=== PATIENT | female | born 1950 | race African-American/Black ===

== ENCOUNTER 2017-03-22 11:46 | Inpatient (IN) | payer MEDICARE, MEDICAID ==
[~2017-03-22] VITALS: Ht 170.2 cm; Wt 71.7 kg
[~2017-03-22 11:46] MED LIST: AMLO-511 PO; BENZ0.5T32 PO; HALO10TA15 PO; OLAN15TA5 PO
[2017-03-22] MEDS ORDERED: LORazepam 2 MG/ML VIAL IM ONE (17:00)
[2017-03-22] MEDS ORDERED: HALOPERIDOL LACTATE 5 MG/ML VIAL IM ONE (17:00)
[2017-03-22] MEDS ORDERED: LORazepam 2 MG TABLET PO PRN (17:45)
[2017-03-22] MEDS ORDERED: ZOLPIDEM TARTRATE 10 MG TABLET PO PRN (17:45)
[2017-03-22] MEDS ORDERED: HALOPERIDOL 5 MG TABLET PO PRN (17:45)
[2017-03-22] MEDS: HALOPERIDOL 10 MG TABLET PO SCH (20:09)
[2017-03-23 05:31] LABS: BASOPHILS % (AUTO) 0.3 % (0.0-2.0); EOSINOPHILS % (AUTO) 0.3 % (1.0-6.0); HEMATOCRIT 40.3 % (36-46); HEMOGLOBIN 13.9 g/dL (12.0-16.0); LYMPHOCYTES # (AUTO) 0.8 K/uL (1.0-4.8); LYMPHOCYTES % (AUTO) 29.5 % (22.0-44.0); MEAN CORPUSCULAR HEMOGLOBIN 32.5 pg (26.0-34.0); MEAN CORPUSCULAR HGB CONC 34.4 G/dL (31.0-37.0); MEAN CORPUSCULAR VOLUME 94 fL (80-100); MONOCYTES # (AUTO) 0.2 K/uL (0.1-1.0); MONOCYTES % (AUTO) 7.5 % (2.0-9.0); NEUTROPHILS # (AUTO) 1.7 K/uL (1.8-7.7); NEUTROPHILS % (AUTO) 62.4 % (40.0-70.0); PLATELET COUNT (AUTO) 257 K/uL (150-450); RED BLOOD CELL COUNT(AUTO) 4.26 MIL/uL (4.00-5.20); RED CELL DISTRIBUTION WIDTH 13.2 % (11.5-14.5); WHITE BLOOD COUNT (AUTO) 2.8 K/uL (4.5-11.0)
[2017-03-23 05:33] LABS: ALANINE AMINOTRANSFERASE 59 U/L (12-78); ALBUMIN 3.7 g/dL (3.4-5.0); ANION GAP 4 mmol/L (8-16); ASPARTATE AMINOTRANSFERASE 43 U/L (15-37); BILIRUBIN,TOTAL 0.5 mg/dL (0.1-1.0); CALCIUM, TOTAL 9.1 mg/dL (8.8-10.5); CARBON DIOXIDE 32 mmol/L (22-29); CHLORIDE 106 mmol/L (98-107); CHOL/HDL RATIO 2.4 (3.9-5.7); GLOMERULAR FILTR. RATE CALC > 60 mL/min (>60); POTASSIUM 3.9 mmol/L (3.5-5.1); SODIUM SERUM 142 mmol/L (136-145); TOTAL PROTEIN, SERUM 7.6 g/dL (6.4-8.2); UREA NITROGEN, BLOOD 7 mg/dL (7-18)
[2017-03-23 20:42] VITALS: BP 131/65
[2017-03-23] MEDS: HALOPERIDOL 10 MG TABLET PO SCH (20:45)
[2017-03-23] MEDS ORDERED: PNEUMOCOCCAL VACCINE POLYVALENT 0.5 ML VIAL [PPSV23] IM ONE (21:15)
[2017-03-23] MEDS ORDERED: -PHARMACY VACCINE NOTE- MISC ONE ×2 (21:15)
[2017-03-24 08:19] VITALS: BP 133/68
[2017-03-24 16:28] VITALS: BP 137/76
[2017-03-24] MEDS: BENZTROPINE MESYLATE 1 MG TABLET PO SCH (17:00)
[2017-03-24] MEDS: OLANZapine 5 MG RAPDIS TABLET PO SCH (20:25)
[2017-03-24] MEDS: HALOPERIDOL 10 MG TABLET PO SCH (20:25)
[2017-03-25 07:29] VITALS: BP 135/72
[2017-03-25] MEDS: HYDROCORTISONE 1% 30 GM OINTMENT TP SCH ×2 (09:00→16:02)
[2017-03-25] MEDS: OLANZapine 5 MG RAPDIS TABLET PO SCH ×2 (09:00→21:00)
[2017-03-25] MEDS: BENZTROPINE MESYLATE 1 MG TABLET PO SCH ×2 (09:00→17:00)
[2017-03-25 09:08] VITALS: BP 155/86
[2017-03-25 16:14] VITALS: BP 136/80
[2017-03-25] MEDS: HALOPERIDOL 10 MG TABLET PO SCH (21:00)
[2017-03-26 08:09] VITALS: BP 137/82
[2017-03-26] MEDS: OLANZapine 5 MG RAPDIS TABLET PO SCH ×2 (09:00→20:53)
[2017-03-26] MEDS: HYDROCORTISONE 1% 30 GM OINTMENT TP SCH ×2 (09:00→17:07)
[2017-03-26] MEDS: BENZTROPINE MESYLATE 1 MG TABLET PO SCH ×2 (09:00→17:00)
[2017-03-26 16:10] VITALS: BP 135/78
[2017-03-26] MEDS: HALOPERIDOL 10 MG TABLET PO SCH (20:52)
[2017-03-27 07:04] VITALS: BP 138/72
[2017-03-27 08:48] VITALS: BP 151/70
[2017-03-27] MEDS: HYDROCORTISONE 1% 30 GM OINTMENT TP SCH ×2 (09:00→17:00)
[2017-03-27] MEDS: BENZTROPINE MESYLATE 1 MG TABLET PO SCH ×2 (09:00→17:00)
[2017-03-27] MEDS: OLANZapine 5 MG RAPDIS TABLET PO SCH ×2 (09:00→20:21)
[2017-03-27 16:15] VITALS: BP 112/62
[2017-03-27] MEDS: HALOPERIDOL 10 MG TABLET PO SCH (20:21)
[2017-03-28 07:21] VITALS: BP 120/72
[2017-03-28 08:12] VITALS: BP 137/64
[2017-03-28] MEDS: HYDROCORTISONE 1% 30 GM OINTMENT TP SCH ×2 (08:33→17:22)
[2017-03-28] MEDS: OLANZapine 5 MG RAPDIS TABLET PO SCH ×2 (08:35→21:00)
[2017-03-28] MEDS: BENZTROPINE MESYLATE 1 MG TABLET PO SCH ×2 (08:36→17:00)
[2017-03-28 16:20] VITALS: BP 134/70
[2017-03-28] MEDS: HALOPERIDOL 10 MG TABLET PO SCH (21:00)
[2017-03-29] MEDS: BENZTROPINE MESYLATE 1 MG TABLET PO SCH ×2 (08:11→16:57)
[2017-03-29] MEDS: OLANZapine 5 MG RAPDIS TABLET PO SCH ×2 (08:11→21:00)
[2017-03-29] MEDS: HYDROCORTISONE 1% 30 GM OINTMENT TP SCH ×2 (08:11→16:59)
[2017-03-29 08:21] VITALS: BP 129/81
[2017-03-29 16:09] VITALS: BP 142/82
[2017-03-29] MEDS: HALOPERIDOL 10 MG TABLET PO SCH (21:00)
[2017-03-30 06:00] VITALS: BP 135/76
[2017-03-30 08:05] VITALS: BP 123/75
[2017-03-30] MEDS: BENZTROPINE MESYLATE 1 MG TABLET PO SCH ×2 (08:26→16:40)
[2017-03-30] MEDS: OLANZapine 5 MG RAPDIS TABLET PO SCH ×2 (08:27→21:00)
[2017-03-30] MEDS: HYDROCORTISONE 1% 30 GM OINTMENT TP SCH ×2 (08:27→16:40)
[2017-03-30 16:07] VITALS: BP 135/71
[2017-03-30] MEDS: HALOPERIDOL 10 MG TABLET PO SCH (21:00)
[2017-03-31 03:54] VITALS: BP 138/80
[2017-03-31 08:20] VITALS: BP 138/78
[2017-03-31] MEDS: BENZTROPINE MESYLATE 1 MG TABLET PO SCH ×2 (08:41→16:48)
[2017-03-31] MEDS: OLANZapine 5 MG RAPDIS TABLET PO SCH ×2 (08:41→21:00)
[2017-03-31] MEDS: HYDROCORTISONE 1% 30 GM OINTMENT TP SCH ×2 (08:41→16:48)
[2017-03-31] MEDS: HALOPERIDOL 10 MG TABLET PO SCH (21:00)
[2017-04-01 06:16] VITALS: BP 135/70
[2017-04-01 08:09] VITALS: BP 165/66
[2017-04-01] MEDS: OLANZapine 5 MG RAPDIS TABLET PO SCH ×2 (08:42→21:00)
[2017-04-01] MEDS: BENZTROPINE MESYLATE 1 MG TABLET PO SCH ×2 (08:42→16:18)
[2017-04-01] MEDS: HYDROCORTISONE 1% 30 GM OINTMENT TP SCH ×2 (08:43→16:18)
[2017-04-01 09:30] VITALS: BP 140/80
[2017-04-01 16:08] VITALS: BP 140/78
[2017-04-01] MEDS: HALOPERIDOL 10 MG TABLET PO SCH (20:06)
[2017-04-02] MEDS: HYDROCORTISONE 1% 30 GM OINTMENT TP SCH ×2 (08:37→16:36)
[2017-04-02] MEDS: OLANZapine 5 MG RAPDIS TABLET PO SCH ×2 (08:38→20:43)
[2017-04-02] MEDS: BENZTROPINE MESYLATE 1 MG TABLET PO SCH ×2 (08:38→16:36)
[2017-04-02 16:07] VITALS: BP 127/83
[2017-04-02 16:59] VITALS: BP 127/83
[2017-04-02] MEDS: HALOPERIDOL 10 MG TABLET PO SCH (20:43)
[2017-04-02] MEDS: HALOPERIDOL LACTATE 5 MG/ML VIAL IM PRN (20:44)
[2017-04-03 06:57] VITALS: BP 135/82
[2017-04-03 08:06] VITALS: BP 125/69
[2017-04-03] MEDS: BENZTROPINE MESYLATE 1 MG TABLET PO SCH ×2 (08:45→17:00)
[2017-04-03] MEDS: OLANZapine 5 MG RAPDIS TABLET PO SCH (08:46)
[2017-04-03] MEDS: HYDROCORTISONE 1% 30 GM OINTMENT TP SCH ×2 (08:47→17:00)
[2017-04-03] MEDS: HALOPERIDOL LACTATE 5 MG/ML VIAL IM PRN ×2 (08:55→17:58)
[2017-04-03] MEDS: HALOPERIDOL 10 MG TABLET PO SCH (17:00)
[2017-04-04] MEDS: HYDROCORTISONE 1% 30 GM OINTMENT TP SCH ×2 (09:00→16:19)
[2017-04-04] MEDS: HALOPERIDOL 10 MG TABLET PO SCH ×2 (09:00→16:19)
[2017-04-04] MEDS: BENZTROPINE MESYLATE 1 MG TABLET PO SCH ×2 (09:00→16:18)
[2017-04-04] MEDS: HALOPERIDOL LACTATE 5 MG/ML VIAL IM PRN ×2 (10:43→17:01)
[2017-04-05] MEDS: BENZTROPINE MESYLATE 1 MG TABLET PO SCH ×2 (09:00→16:16)
[2017-04-05] MEDS: HALOPERIDOL 10 MG TABLET PO SCH ×2 (09:00→16:16)
[2017-04-05] MEDS: HALOPERIDOL LACTATE 5 MG/ML VIAL IM PRN ×2 (09:10→16:16)
[2017-04-05] MEDS: HYDROCORTISONE 1% 30 GM OINTMENT TP SCH ×2 (09:11→16:16)
[2017-04-05 16:08] VITALS: BP 135/63
[2017-04-06 03:44] VITALS: BP 127/66
[2017-04-06 08:14] VITALS: BP 118/69
[2017-04-06] MEDS: BENZTROPINE MESYLATE 1 MG TABLET PO SCH ×2 (09:00→16:22)
[2017-04-06] MEDS: HYDROCORTISONE 1% 30 GM OINTMENT TP SCH ×2 (09:00→16:22)
[2017-04-06] MEDS: HALOPERIDOL 10 MG TABLET PO SCH ×2 (09:00→16:22)
[2017-04-06] MEDS: HALOPERIDOL LACTATE 5 MG/ML VIAL IM PRN ×2 (10:37→16:25)
[2017-04-06 16:26] VITALS: BP 137/86
[2017-04-07 02:37] VITALS: BP 133/67
[2017-04-07 08:12] VITALS: BP 137/67
[2017-04-07] MEDS: HALOPERIDOL 10 MG TABLET PO SCH ×2 (09:00→17:00)
[2017-04-07] MEDS: BENZTROPINE MESYLATE 1 MG TABLET PO SCH ×2 (09:00→17:00)
[2017-04-07] MEDS: HYDROCORTISONE 1% 30 GM OINTMENT TP SCH ×2 (09:08→17:13)
[2017-04-07 16:14] VITALS: BP 138/67
[2017-04-07] MEDS: HALOPERIDOL LACTATE 5 MG/ML VIAL IM PRN (17:26)
[2017-04-08 08:28] VITALS: BP 122/66
[2017-04-08] MEDS: BENZTROPINE MESYLATE 1 MG TABLET PO SCH ×2 (09:00→17:00)
[2017-04-08] MEDS: HALOPERIDOL 10 MG TABLET PO SCH ×2 (09:00→17:00)
[2017-04-08] MEDS: HYDROCORTISONE 1% 30 GM OINTMENT TP SCH ×2 (09:03→17:00)
[2017-04-08] MEDS: HALOPERIDOL LACTATE 5 MG/ML VIAL IM PRN ×2 (09:45→17:43)
[2017-04-08 16:11] VITALS: BP 135/72
[2017-04-09 01:19] VITALS: BP 133/71
[2017-04-09 08:29] VITALS: BP 128/81
[2017-04-09] MEDS: HALOPERIDOL 10 MG TABLET PO SCH ×2 (09:00→17:00)
[2017-04-09] MEDS: BENZTROPINE MESYLATE 1 MG TABLET PO SCH ×2 (09:00→17:00)
[2017-04-09] MEDS: HYDROCORTISONE 1% 30 GM OINTMENT TP SCH ×2 (09:41→17:23)
[2017-04-09 16:15] VITALS: BP 136/69
[2017-04-10 06:04] VITALS: BP 133/63
[2017-04-10 08:17] VITALS: BP 123/64
[2017-04-10] MEDS: HALOPERIDOL 10 MG TABLET PO SCH ×2 (08:27→17:00)
[2017-04-10] MEDS: BENZTROPINE MESYLATE 1 MG TABLET PO SCH ×2 (08:27→17:00)
[2017-04-10] MEDS: HYDROCORTISONE 1% 30 GM OINTMENT TP SCH ×2 (08:47→17:01)
[2017-04-11 03:09] VITALS: BP 133/81
[2017-04-11] MEDS: HALOPERIDOL 10 MG TABLET PO SCH ×2 (08:22→16:15)
[2017-04-11] MEDS: BENZTROPINE MESYLATE 1 MG TABLET PO SCH ×2 (08:22→16:15)
[2017-04-11] MEDS: HYDROCORTISONE 1% 30 GM OINTMENT TP SCH ×2 (08:30→16:15)
[2017-04-11 16:19] VITALS: BP 136/77
[2017-04-11] MEDS: HALOPERIDOL LACTATE 5 MG/ML VIAL IM PRN (16:37)
[2017-04-12 05:52] VITALS: BP 130/72
[2017-04-12] MEDS: BENZTROPINE MESYLATE 1 MG TABLET PO SCH ×2 (08:17→16:08)
[2017-04-12] MEDS: HYDROCORTISONE 1% 30 GM OINTMENT TP SCH ×2 (08:17→16:08)
[2017-04-12] MEDS: HALOPERIDOL 10 MG TABLET PO SCH ×2 (08:17→16:08)
[2017-04-12 08:28] VITALS: BP 116/73
[2017-04-12] MEDS: HALOPERIDOL LACTATE 5 MG/ML VIAL IM PRN ×2 (08:32→16:23)
[2017-04-13 01:35] VITALS: BP 117/71
[2017-04-13 08:19] VITALS: BP 101/82
[2017-04-13] MEDS: BENZTROPINE MESYLATE 1 MG TABLET PO SCH ×3 (09:00→17:00)
[2017-04-13] MEDS: HALOPERIDOL 10 MG TABLET PO SCH ×3 (09:00→17:00)
[2017-04-13] MEDS: HYDROCORTISONE 1% 30 GM OINTMENT TP SCH ×2 (09:04→17:02)
[2017-04-13] MEDS: HALOPERIDOL LACTATE 5 MG/ML VIAL IM PRN ×2 (10:06→17:41)
[2017-04-13 16:11] VITALS: BP 142/92
[2017-04-14 03:15] VITALS: BP 127/77
[2017-04-14 08:23] VITALS: BP 152/109
[2017-04-14] MEDS: HALOPERIDOL 10 MG TABLET PO SCH ×2 (08:24→16:25)
[2017-04-14] MEDS: BENZTROPINE MESYLATE 1 MG TABLET PO SCH ×2 (08:24→16:25)
[2017-04-14] MEDS: HYDROCORTISONE 1% 30 GM OINTMENT TP SCH ×2 (08:25→16:25)
[2017-04-14] MEDS: HALOPERIDOL LACTATE 5 MG/ML VIAL IM PRN ×2 (08:43→17:29)
[2017-04-14 16:03] VITALS: BP 149/85
[2017-04-15 05:16] VITALS: BP 106/70
[2017-04-15 08:11] VITALS: BP 120/77
[2017-04-15] MEDS: BENZTROPINE MESYLATE 1 MG TABLET PO SCH ×2 (09:00→16:37)
[2017-04-15] MEDS: HALOPERIDOL 10 MG TABLET PO SCH ×2 (09:00→16:37)
[2017-04-15] MEDS: HYDROCORTISONE 1% 30 GM OINTMENT TP SCH ×2 (09:23→16:36)
[2017-04-15] MEDS: HALOPERIDOL LACTATE 5 MG/ML VIAL IM PRN ×2 (09:52→17:32)
[2017-04-15 16:13] VITALS: BP 132/66
[2017-04-16 08:00] VITALS: BP 133/78
[2017-04-16] MEDS: HALOPERIDOL LACTATE 5 MG/ML VIAL IM PRN ×2 (08:50→17:00)
[2017-04-16] MEDS: BENZTROPINE MESYLATE 1 MG TABLET PO SCH ×2 (09:00→16:12)
[2017-04-16] MEDS: HALOPERIDOL 10 MG TABLET PO SCH ×2 (09:00→16:12)
[2017-04-16] MEDS: HYDROCORTISONE 1% 30 GM OINTMENT TP SCH ×2 (10:07→16:12)
[2017-04-16 16:04] VITALS: BP 133/60
[2017-04-17 06:54] VITALS: BP 128/69
[2017-04-17 08:31] VITALS: BP 150/76
[2017-04-17] MEDS: BENZTROPINE MESYLATE 1 MG TABLET PO SCH ×2 (09:00→16:41)
[2017-04-17] MEDS: HALOPERIDOL 10 MG TABLET PO SCH ×2 (09:00→16:42)
[2017-04-17] MEDS: HYDROCORTISONE 1% 30 GM OINTMENT TP SCH ×2 (09:30→16:42)
[2017-04-17] MEDS: HALOPERIDOL LACTATE 5 MG/ML VIAL IM PRN ×2 (09:37→17:15)
[2017-04-18 08:37] VITALS: BP 132/84
[2017-04-18] MEDS: HYDROCORTISONE 1% 30 GM OINTMENT TP SCH ×2 (08:59→17:00)
[2017-04-18] MEDS: BENZTROPINE MESYLATE 1 MG TABLET PO SCH ×2 (09:00→17:00)
[2017-04-18] MEDS: HALOPERIDOL LACTATE 5 MG/ML VIAL IM PRN ×2 (09:00→17:30)
[2017-04-18] MEDS: HALOPERIDOL 10 MG TABLET PO SCH ×2 (09:00→17:00)
[2017-04-18 18:07] VITALS: BP 127/79
[2017-04-19 08:18] VITALS: BP 140/78
[2017-04-19] MEDS: HYDROCORTISONE 1% 30 GM OINTMENT TP SCH ×2 (08:40→17:10)
[2017-04-19] MEDS: BENZTROPINE MESYLATE 1 MG TABLET PO SCH ×2 (08:40→17:00)
[2017-04-19] MEDS: HALOPERIDOL 10 MG TABLET PO SCH ×2 (08:40→17:00)
[2017-04-19] MEDS: HALOPERIDOL LACTATE 5 MG/ML VIAL IM PRN ×2 (09:17→17:26)
[2017-04-20 01:38] VITALS: BP 133/68
[2017-04-20 08:12] VITALS: BP 140/80
[2017-04-20] MEDS: BENZTROPINE MESYLATE 1 MG TABLET PO SCH ×2 (09:00→17:00)
[2017-04-20] MEDS: HALOPERIDOL 10 MG TABLET PO SCH ×2 (09:00→17:00)
[2017-04-20] MEDS: HYDROCORTISONE 1% 30 GM OINTMENT TP SCH ×2 (09:34→17:10)
[2017-04-20] MEDS: HALOPERIDOL LACTATE 5 MG/ML VIAL IM PRN ×2 (10:29→17:26)
[2017-04-20 15:57] VITALS: BP 138/82
[2017-04-21 08:07] VITALS: BP 142/85
[2017-04-21] MEDS: BENZTROPINE MESYLATE 1 MG TABLET PO SCH ×2 (09:00→16:17)
[2017-04-21] MEDS: HALOPERIDOL 10 MG TABLET PO SCH ×2 (09:00→16:17)
[2017-04-21] MEDS: HYDROCORTISONE 1% 30 GM OINTMENT TP SCH ×2 (09:04→16:20)
[2017-04-21] MEDS: HALOPERIDOL LACTATE 5 MG/ML VIAL IM PRN ×2 (09:05→16:19)
[2017-04-21 16:05] VITALS: BP 150/90
[2017-04-22 07:12] VITALS: BP 140/85
[2017-04-22 08:19] VITALS: BP 157/90
[2017-04-22] MEDS: HALOPERIDOL 10 MG TABLET PO SCH ×2 (09:00→17:00)
[2017-04-22] MEDS: BENZTROPINE MESYLATE 1 MG TABLET PO SCH ×2 (09:00→17:00)
[2017-04-22] MEDS: HYDROCORTISONE 1% 30 GM OINTMENT TP SCH ×2 (09:55→17:00)
[2017-04-22] MEDS: HALOPERIDOL LACTATE 5 MG/ML VIAL IM PRN ×2 (09:55→17:50)
[2017-04-22 16:31] VITALS: BP 134/82
[2017-04-23] MEDS: HYDROCORTISONE 1% 30 GM OINTMENT TP SCH ×2 (08:24→16:57)
[2017-04-23] MEDS: HALOPERIDOL 10 MG TABLET PO SCH ×2 (08:24→16:57)
[2017-04-23] MEDS: BENZTROPINE MESYLATE 1 MG TABLET PO SCH ×2 (08:24→16:57)
[2017-04-23] MEDS: HALOPERIDOL LACTATE 5 MG/ML VIAL IM PRN ×2 (08:25→16:58)
[2017-04-23 08:35] VITALS: BP 160/92
[2017-04-23 08:50] VITALS: BP 124/63
[2017-04-23 16:08] VITALS: BP 124/68
[2017-04-24 06:27] VITALS: BP 118/67
[2017-04-24] MEDS: BENZTROPINE MESYLATE 1 MG TABLET PO SCH ×2 (08:41→17:00)
[2017-04-24] MEDS: HALOPERIDOL 10 MG TABLET PO SCH ×2 (08:41→17:00)
[2017-04-24] MEDS: HYDROCORTISONE 1% 30 GM OINTMENT TP SCH ×2 (08:41→17:13)
[2017-04-24] MEDS: HALOPERIDOL LACTATE 5 MG/ML VIAL IM PRN ×2 (08:42→17:18)
[2017-04-24 08:44] VITALS: BP 133/88
[2017-04-24 16:10] VITALS: BP 128/73
[2017-04-25 06:33] VITALS: BP 122/62
[2017-04-25 08:00] VITALS: BP 145/88
[2017-04-25] MEDS: HALOPERIDOL 10 MG TABLET PO SCH ×2 (09:00→17:00)
[2017-04-25] MEDS: BENZTROPINE MESYLATE 1 MG TABLET PO SCH ×2 (09:00→17:00)
[2017-04-25] MEDS: HALOPERIDOL LACTATE 5 MG/ML VIAL IM PRN ×2 (09:54→17:28)
[2017-04-25] MEDS: HYDROCORTISONE 1% 30 GM OINTMENT TP SCH ×2 (09:54→17:29)
[2017-04-25] MEDS: HALOPERIDOL DECANOATE 100 MG/ML VIAL IM SCH (10:31)
[2017-04-25 16:18] VITALS: BP 120/75
[2017-04-26 05:41] VITALS: BP 135/72
[2017-04-26 08:30] VITALS: BP 134/74
[2017-04-26] MEDS: HALOPERIDOL LACTATE 5 MG/ML VIAL IM PRN ×2 (08:53→17:33)
[2017-04-26] MEDS: BENZTROPINE MESYLATE 1 MG TABLET PO SCH ×2 (09:00→17:00)
[2017-04-26] MEDS: HALOPERIDOL 10 MG TABLET PO SCH ×2 (09:00→17:00)
[2017-04-26] MEDS: HYDROCORTISONE 1% 30 GM OINTMENT TP SCH ×2 (09:26→17:33)
[2017-04-26 16:21] VITALS: BP 138/88
[2017-04-26] MEDS ORDERED: DiphenhydrAMINE HCL 50 MG/ML VIAL IM ONE (21:30)
[2017-04-27 06:30] VITALS: BP 123/68
[2017-04-27] MEDS: BENZTROPINE MESYLATE 1 MG TABLET PO SCH ×2 (08:59→17:00)
[2017-04-27] MEDS: HYDROCORTISONE 1% 30 GM OINTMENT TP SCH ×2 (08:59→17:26)
[2017-04-27] MEDS: HALOPERIDOL 10 MG TABLET PO SCH ×2 (08:59→17:00)
[2017-04-27] MEDS: HALOPERIDOL LACTATE 5 MG/ML VIAL IM PRN ×2 (09:01→17:26)
[2017-04-27 16:39] VITALS: BP 131/86
[2017-04-28 06:57] VITALS: BP 134/81
[2017-04-28] MEDS: BENZTROPINE MESYLATE 1 MG TABLET PO SCH ×2 (08:18→17:00)
[2017-04-28] MEDS: HYDROCORTISONE 1% 30 GM OINTMENT TP SCH ×2 (08:18→17:21)
[2017-04-28] MEDS: HALOPERIDOL 10 MG TABLET PO SCH ×2 (08:19→17:00)
[2017-04-28 08:31] VITALS: BP 136/80
[2017-04-28] MEDS: HALOPERIDOL LACTATE 5 MG/ML VIAL IM PRN ×2 (10:00→17:22)
[2017-04-28 16:25] VITALS: BP 137/73
[2017-04-29 03:45] VITALS: BP 132/71
[2017-04-29 08:23] VITALS: BP 145/91
[2017-04-29] MEDS: HALOPERIDOL 10 MG TABLET PO SCH ×2 (09:00→16:18)
[2017-04-29] MEDS: BENZTROPINE MESYLATE 1 MG TABLET PO SCH ×2 (09:00→16:18)
[2017-04-29] MEDS: HYDROCORTISONE 1% 30 GM OINTMENT TP SCH ×2 (09:46→16:19)
[2017-04-29] MEDS: HALOPERIDOL LACTATE 5 MG/ML VIAL IM PRN ×2 (09:46→16:26)
[2017-04-29 16:30] VITALS: BP 135/84
[2017-04-30 06:53] VITALS: BP 121/67
[2017-04-30] MEDS: HALOPERIDOL 10 MG TABLET PO SCH ×2 (08:33→09:00)
[2017-04-30] MEDS: BENZTROPINE MESYLATE 1 MG TABLET PO SCH ×3 (08:33→16:18)
[2017-04-30] MEDS: HYDROCORTISONE 1% 30 GM OINTMENT TP SCH ×2 (08:33→16:17)
[2017-04-30 09:11] VITALS: BP 143/72
[2017-04-30] MEDS: HALOPERIDOL LACTATE 5 MG/ML VIAL IM PRN (09:42)
[2017-04-30 16:15] VITALS: BP 125/75
[2017-05-01 07:24] VITALS: BP 122/78
[2017-05-01] MEDS: HYDROCORTISONE 1% 30 GM OINTMENT TP SCH ×2 (08:15→16:06)
[2017-05-01] MEDS: BENZTROPINE MESYLATE 1 MG TABLET PO SCH ×2 (08:15→16:06)
[2017-05-01 08:29] VITALS: BP 152/82
[2017-05-01 10:30] VITALS: BP 138/78
[2017-05-01 16:27] VITALS: BP 129/81
[2017-05-02 07:07] VITALS: BP 140/79
[2017-05-02] MEDS: HYDROCORTISONE 1% 30 GM OINTMENT TP SCH ×2 (08:20→16:15)
[2017-05-02] MEDS: BENZTROPINE MESYLATE 1 MG TABLET PO SCH ×3 (08:20→16:15)
[2017-05-02 16:07] VITALS: BP 142/91
[2017-05-03 05:59] VITALS: BP 142/91
[2017-05-03 08:17] VITALS: BP 165/80
[2017-05-03] MEDS ORDERED: TUBERCULIN, PURIFIED PROTEIN DERIVATIVE 5 TU/0.1 ML SYG ID ONE (08:45)
[2017-05-03] MEDS: BENZTROPINE MESYLATE 1 MG TABLET PO SCH ×2 (09:00→17:00)
[2017-05-03] MEDS: HYDROCORTISONE 1% 30 GM OINTMENT TP SCH ×2 (09:34→17:04)
[2017-05-03 16:05] VITALS: BP 139/75
[2017-05-04 00:51] VITALS: BP 137/69
[2017-05-04] MEDS: HYDROCORTISONE 1% 30 GM OINTMENT TP SCH ×2 (08:05→17:10)
[2017-05-04] MEDS: BENZTROPINE MESYLATE 1 MG TABLET PO SCH ×2 (08:05→17:00)
[2017-05-04 08:54] VITALS: BP 134/70
[2017-05-04 16:00] VITALS: BP 153/78
[2017-05-05 07:22] VITALS: BP 140/72
[2017-05-05] MEDS: BENZTROPINE MESYLATE 1 MG TABLET PO SCH ×2 (08:33→17:00)
[2017-05-05] MEDS: HYDROCORTISONE 1% 30 GM OINTMENT TP SCH ×2 (08:33→16:12)
[2017-05-05 09:33] VITALS: BP 139/80
[2017-05-05 16:39] VITALS: BP 140/91
[2017-05-06 08:50] VITALS: BP 145/86
[2017-05-06] MEDS: BENZTROPINE MESYLATE 1 MG TABLET PO SCH ×2 (09:00→16:28)
[2017-05-06] MEDS: HYDROCORTISONE 1% 30 GM OINTMENT TP SCH ×2 (09:06→16:28)
[2017-05-06 16:31] VITALS: BP 144/86
[2017-05-06 18:15] VITALS: BP 138/80
[2017-05-06] MEDS ORDERED: HALO100A IM (21:37)
[2017-05-07 08:23] VITALS: BP 134/74
[2017-05-07] MEDS: HYDROCORTISONE 1% 30 GM OINTMENT TP SCH ×2 (09:00→17:04)
[2017-05-07] MEDS: BENZTROPINE MESYLATE 1 MG TABLET PO SCH ×2 (09:00→17:00)
[2017-05-07 16:34] VITALS: BP 144/76
[2017-05-08 02:00] VITALS: BP 131/74
[2017-05-08 08:22] VITALS: BP 151/74
[2017-05-08] MEDS: HYDROCORTISONE 1% 30 GM OINTMENT TP SCH ×2 (08:42→17:05)
[2017-05-08] MEDS: BENZTROPINE MESYLATE 1 MG TABLET PO SCH ×2 (08:42→17:00)
[2017-05-08 16:31] VITALS: BP 119/71
[2017-05-09 08:53] VITALS: BP 136/67
[2017-05-09] MEDS: BENZTROPINE MESYLATE 1 MG TABLET PO SCH ×2 (09:00→16:31)
[2017-05-09] MEDS: HALOPERIDOL DECANOATE 100 MG/ML VIAL IM SCH (09:06)
[2017-05-09] MEDS: HYDROCORTISONE 1% 30 GM OINTMENT TP SCH ×2 (09:07→16:31)
[2017-05-09 16:22] VITALS: BP 137/84
[2017-05-10] MEDS: HYDROCORTISONE 1% 30 GM OINTMENT TP SCH ×2 (08:23→16:16)
[2017-05-10] MEDS: BENZTROPINE MESYLATE 1 MG TABLET PO SCH ×2 (08:25→16:16)
[2017-05-10 09:12] VITALS: BP 144/74
[2017-05-10 16:10] VITALS: BP 142/80
[2017-05-11 07:20] VITALS: BP 145/76
[2017-05-11] MEDS: HYDROCORTISONE 1% 30 GM OINTMENT TP SCH ×2 (08:35→16:35)
[2017-05-11] MEDS: BENZTROPINE MESYLATE 1 MG TABLET PO SCH ×2 (08:35→17:00)
[2017-05-11 08:36] VITALS: BP 138/78
[2017-05-11 16:17] VITALS: BP 142/72
[2017-05-11] MEDS: MAG HYDROX/AL HYDROX/SIMETH 30 ML SUSP UDCUP PO PRN (18:48)
[2017-05-12 06:44] VITALS: BP 127/74
[2017-05-12] MEDS: BENZTROPINE MESYLATE 1 MG TABLET PO SCH ×2 (08:26→16:12)
[2017-05-12] MEDS: HYDROCORTISONE 1% 30 GM OINTMENT TP SCH ×2 (08:26→16:12)
[2017-05-12 08:28] VITALS: BP 155/92
[2017-05-12 11:30] VITALS: BP 141/88
[2017-05-12 16:10] VITALS: BP 140/77
[2017-05-13 04:26] VITALS: BP 138/78
[2017-05-13 08:11] VITALS: BP 132/73
[2017-05-13] MEDS: BENZTROPINE MESYLATE 1 MG TABLET PO SCH ×2 (08:42→16:20)
[2017-05-13] MEDS: HYDROCORTISONE 1% 30 GM OINTMENT TP SCH ×2 (08:42→16:20)
[2017-05-13 16:13] VITALS: BP 138/77
[2017-05-13] MEDS: MAG HYDROX/AL HYDROX/SIMETH 30 ML SUSP UDCUP PO PRN (22:05)
[2017-05-14 08:30] VITALS: BP 153/85
[2017-05-14] MEDS: BENZTROPINE MESYLATE 1 MG TABLET PO SCH (08:54)
[2017-05-14] MEDS: HYDROCORTISONE 1% 30 GM OINTMENT TP SCH (08:54)
== END 2017-05-14 12:30 | disposition home or self-care (01) | DRG 750 ==
LOC: EMS 11:50 → B3A 03-23 19:16
PROVIDERS: ADMIT Psychiatry & Neurology Child & Adolescent Psychiatry; ATTEND Psychiatry & Neurology Child & Adolescent Psychiatry
DX: F20.0 Paranoid schizophrenia (principal); D72.829 Elevated white blood cell count, unspecified; L30.9 Dermatitis, unspecified; Z88.8 Allergy status to other drugs, medicaments and biological substances; Z28.21 Immunization not carried out because of patient refusal
CPT/HCPCS: 82306; 82652; 87081; 96372; 99285; J1200; J1630; J1631; J2060

== ENCOUNTER 2018-07-15 11:08 | Inpatient (IN) | payer MEDICARE, MEDICAID ==
[~2018-07-15] VITALS: Ht 172.7 cm; Wt 74.6 kg
[~2018-07-15 11:08] MED LIST changes: -AMLO-511 PO; +HALO100A IM; -HALO10TA15 PO; -OLAN15TA5 PO
[2018-07-15] MEDS ORDERED: LORazepam 2 MG/ML VIAL IM ONE (16:15)
[2018-07-15] MEDS ORDERED: HALOPERIDOL LACTATE 5 MG/ML VIAL IM ONE (16:15)
[2018-07-15] MEDS ORDERED: BENZ1TAB10 PO (16:18)
[2018-07-15] MEDS ORDERED: ZOLPIDEM TARTRATE 10 MG TABLET PO PRN (17:45)
[2018-07-15 18:45] LABS: APPEARANCE,URINE CLEAR (CLEAR); BILIRUBIN,URINE NEGATIVE (NEGATIVE); GLUCOSE, URINE (UA) NEGATIVE (NEGATIVE); KETONES,URINE NEGATIVE (NEGATIVE); LEUKOCYTE ESTERASE ,URINE NEGATIVE (NEGATIVE); NITRATE,URINE NEGATIVE (NEGATIVE); OCCULT BLOOD,URINE SMALL (NEGATIVE); PROTEIN,URINE NEGATIVE (NEGATIVE); UROBILINOGEN,URINE 0.2 mg/dL (<=1.0)
[2018-07-15 18:53] LABS: BACTERIA,URINE Rare /HPF (None Seen); SQUAMOUS EPITHELIAL CELL,UR Few /LPF (None Seen); WBC,URINE 0-2 /HPF (0-5)
[2018-07-15 18:54] LABS: AMPHET/METH SCREEN,URINE NEGATIVE (NEGATIVE); BARBITURATE SCREEN, URINE NEGATIVE (NEGATIVE); BENZODIAZEPINES SCREEN,URINE NEGATIVE (NEGATIVE); CANNABINOID SCREEN,URINE NEGATIVE (NEGATIVE); COCAINE SCREEN,URINE NEGATIVE (NEGATIVE); METHADONE SCREEN, URINE NEGATIVE (NEGATIVE); OPIATE SCREEN,URINE NEGATIVE (NEGATIVE); PHENCYCLIDINE SCREEN,URINE NEGATIVE (NEGATIVE)
[2018-07-15 20:11] VITALS: BP 138/85
[2018-07-15] MEDS ORDERED: PNEUMOCOCCAL VACCINE POLYVALENT 0.5 ML VIAL [PPSV23] IM ONE (20:15)
[2018-07-15] MEDS ORDERED: ACETAMINOPHEN 325 MG TABLET PO PRN (21:15)
[2018-07-15] MEDS ORDERED: MAGNESIUM HYDROXIDE SUSPENSION 30 ML UDCUP PO PRN (21:15)
[2018-07-15] MEDS ORDERED: ONDANSETRON HCL 4 MG TABLET PO PRN (21:15)
[2018-07-15] MEDS ORDERED: CloNIDine HCL 0.1 MG TABLET PO PRN (21:15)
[2018-07-15] MEDS ORDERED: ALBUTEROL SULFATE HFA 90 MCG/PUFF 8 GM INHALER IH PRN (21:15)
[2018-07-15] MEDS ORDERED: GuaiFENesin/D-METHORPHAN [SUGAR-FREE] 200-20MG/10 ML SYRUP UDCUP PO PRN (21:15)
[2018-07-15] MEDS ORDERED: IBUPROFEN 400 MG TABLET PO PRN (21:15)
[2018-07-15] MEDS ORDERED: LOPERAMIDE HCL 2 MG CAPSULE PO PRN (21:15)
[2018-07-15] MEDS ORDERED: PETROLATUM,WHITE 28 GM JELLY TP PRN (21:15)
[2018-07-15] MEDS ORDERED: DOCUSATE SODIUM 100 MG CAPSULE PO PRN (21:15)
[2018-07-15] MEDS ORDERED: NICOTINE 14 MG/24 HOUR PATCH TD PRN (21:15)
[2018-07-16 04:55] VITALS: BP 132/82
[2018-07-16 08:13] VITALS: BP 136/81
[2018-07-16] MEDS: HALOPERIDOL 5 MG TABLET PO SCH (17:00)
[2018-07-17] VITALS: BP 132/87
[2018-07-17] MEDS: HALOPERIDOL 5 MG TABLET PO SCH ×2 (09:00→17:00)
[2018-07-18 02:22] VITALS: BP 129/78
[2018-07-18] MEDS: HALOPERIDOL 5 MG TABLET PO SCH ×2 (09:00→17:00)
[2018-07-18] MEDS ORDERED: COLLOIDAL OATMEAL PACKET TP PRN (14:00)
[2018-07-18] MEDS ORDERED: BACITRACIN 28.4 GM OINTMENT TP PRN (14:00)
[2018-07-19 04:46] VITALS: BP 127/80
[2018-07-19] MEDS: HALOPERIDOL 5 MG TABLET PO SCH ×2 (08:20→16:40)
[2018-07-19 08:47] VITALS: BP 127/78
[2018-07-20 00:40] VITALS: BP 129/69
[2018-07-20] MEDS: HALOPERIDOL 5 MG TABLET PO SCH ×2 (08:21→16:36)
[2018-07-20 17:40] VITALS: BP 131/77
[2018-07-21] MEDS: HALOPERIDOL 5 MG TABLET PO SCH ×2 (08:09→16:11)
[2018-07-21 16:42] VITALS: BP 132/69
[2018-07-22 00:58] VITALS: BP 143/89
[2018-07-22] MEDS: HALOPERIDOL 5 MG TABLET PO SCH ×2 (09:00→17:00)
[2018-07-22 09:19] VITALS: BP 143/68
[2018-07-22 20:08] VITALS: BP 138/87
[2018-07-23 04:42] VITALS: BP 136/75
[2018-07-23] MEDS: HALOPERIDOL 5 MG TABLET PO SCH ×2 (09:00→17:00)
[2018-07-23] MEDS: COLLOIDAL OATMEAL/DIMETH 227 GM LOTION TP PRN (14:53)
[2018-07-24] MEDS: HALOPERIDOL 5 MG TABLET PO SCH ×2 (08:33→17:00)
[2018-07-24] MEDS: COLLOIDAL OATMEAL/DIMETH 227 GM LOTION TP PRN (16:13)
[2018-07-24 17:12] VITALS: BP 138/80
[2018-07-25 00:09] VITALS: BP 107/60
[2018-07-25] MEDS: HALOPERIDOL 5 MG TABLET PO SCH ×2 (09:00→17:00)
[2018-07-25 16:14] VITALS: BP 135/77
[2018-07-25] MEDS: HALOPERIDOL LACTATE 5 MG/ML VIAL IM PRN (17:32)
[2018-07-25] MEDS ORDERED: ZOLPIDEM TARTRATE 10 MG TABLET PO PRN (18:15)
[2018-07-26 02:00] VITALS: BP 136/86
[2018-07-26 08:35] VITALS: BP 128/71
[2018-07-26] MEDS: HALOPERIDOL 5 MG TABLET PO SCH ×2 (09:00→17:00)
[2018-07-26] MEDS: HALOPERIDOL LACTATE 5 MG/ML VIAL IM PRN ×2 (09:18→17:58)
[2018-07-27 08:37] VITALS: BP 133/74
[2018-07-27] MEDS: HALOPERIDOL 5 MG TABLET PO SCH ×2 (09:00→17:00)
[2018-07-27] MEDS: HALOPERIDOL LACTATE 5 MG/ML VIAL IM PRN (09:52)
[2018-07-28] MEDS: HALOPERIDOL 5 MG TABLET PO SCH ×2 (09:00→17:00)
[2018-07-28] MEDS: HALOPERIDOL LACTATE 5 MG/ML VIAL IM PRN ×2 (09:46→17:38)
[2018-07-29 01:42] VITALS: BP 146/72
[2018-07-29 08:12] VITALS: BP 138/76
[2018-07-29] MEDS: HALOPERIDOL 5 MG TABLET PO SCH ×2 (09:00→17:00)
[2018-07-29] MEDS: HALOPERIDOL LACTATE 5 MG/ML VIAL IM PRN ×2 (09:52→18:09)
[2018-07-29 16:09] VITALS: BP 141/79
[2018-07-30 00:15] VITALS: BP 132/80
[2018-07-30] MEDS: HALOPERIDOL 5 MG TABLET PO SCH ×2 (08:56→17:00)
[2018-07-30] MEDS: HALOPERIDOL LACTATE 5 MG/ML VIAL IM PRN ×2 (09:36→17:07)
[2018-07-31 08:14] VITALS: BP 111/64
[2018-07-31] MEDS: HALOPERIDOL 5 MG TABLET PO SCH ×2 (09:00→17:00)
[2018-07-31] MEDS: HALOPERIDOL LACTATE 5 MG/ML VIAL IM PRN ×2 (09:12→17:29)
[2018-07-31 16:57] VITALS: BP 127/61
[2018-08-01 08:20] VITALS: BP 137/71
[2018-08-01] MEDS: HALOPERIDOL 5 MG TABLET PO SCH ×2 (09:00→17:00)
[2018-08-01] MEDS: HALOPERIDOL LACTATE 5 MG/ML VIAL IM PRN ×2 (12:27→17:19)
[2018-08-02 00:10] VITALS: BP 126/75
[2018-08-02 08:40] VITALS: BP 137/83
[2018-08-02] MEDS: HALOPERIDOL 5 MG TABLET PO SCH ×2 (09:00→17:00)
[2018-08-02] MEDS ORDERED: HALOPERIDOL DECANOATE 100 MG/ML VIAL IM ONE (10:15)
[2018-08-02] MEDS: HALOPERIDOL LACTATE 5 MG/ML VIAL IM PRN ×2 (11:08→20:15)
[2018-08-03] MEDS: HALOPERIDOL 5 MG TABLET PO SCH ×2 (08:38→17:00)
[2018-08-03] MEDS: HALOPERIDOL LACTATE 5 MG/ML VIAL IM PRN ×2 (09:32→18:11)
[2018-08-03] MEDS: COLLOIDAL OATMEAL/DIMETH 227 GM LOTION TP PRN (09:33)
[2018-08-03 16:08] VITALS: BP 139/82
[2018-08-04] MEDS: HALOPERIDOL 5 MG TABLET PO SCH ×3 (08:24→17:00)
[2018-08-04] MEDS: HALOPERIDOL LACTATE 5 MG/ML VIAL IM PRN ×2 (09:37→17:00)
[2018-08-05 08:19] VITALS: BP 146/79
[2018-08-05] MEDS: HALOPERIDOL 5 MG TABLET PO SCH ×2 (08:58→16:55)
[2018-08-05] MEDS: HALOPERIDOL LACTATE 5 MG/ML VIAL IM PRN ×2 (09:45→17:54)
[2018-08-05] MEDS: COLLOIDAL OATMEAL/DIMETH 227 GM LOTION TP PRN (21:08)
[2018-08-06 07:39] VITALS: BP 135/82
[2018-08-06 08:48] VITALS: BP 127/71
[2018-08-06] MEDS: HALOPERIDOL 5 MG TABLET PO SCH ×2 (08:49→17:00)
[2018-08-06] MEDS: HALOPERIDOL LACTATE 5 MG/ML VIAL IM PRN ×2 (09:05→17:26)
[2018-08-07 01:24] VITALS: BP 120/70
[2018-08-07] MEDS: HALOPERIDOL 5 MG TABLET PO SCH ×2 (08:44→16:29)
[2018-08-07] MEDS: HALOPERIDOL LACTATE 5 MG/ML VIAL IM PRN ×2 (08:59→16:46)
[2018-08-07 16:32] VITALS: BP 139/74
[2018-08-08 00:45] VITALS: BP 135/77
[2018-08-08 08:15] VITALS: BP 135/67
[2018-08-08] MEDS: HALOPERIDOL 5 MG TABLET PO SCH ×2 (08:48→17:00)
[2018-08-08] MEDS: HALOPERIDOL LACTATE 5 MG/ML VIAL IM PRN ×2 (08:54→17:28)
[2018-08-09 08:16] VITALS: BP 132/71
[2018-08-09] MEDS: HALOPERIDOL 5 MG TABLET PO SCH ×2 (09:00→17:00)
[2018-08-09] MEDS: HALOPERIDOL LACTATE 5 MG/ML VIAL IM PRN ×2 (09:40→17:36)
[2018-08-09 16:12] VITALS: BP 131/70
[2018-08-10 00:42] VITALS: BP 128/75
[2018-08-10 08:00] VITALS: BP 143/75
[2018-08-10] MEDS: HALOPERIDOL 5 MG TABLET PO SCH ×2 (08:48→17:00)
[2018-08-10] MEDS: HALOPERIDOL LACTATE 5 MG/ML VIAL IM PRN ×2 (08:49→17:14)
[2018-08-10 10:40] VITALS: BP 123/70
[2018-08-10 16:17] VITALS: BP 135/67
[2018-08-10] MEDS: COLLOIDAL OATMEAL/DIMETH 227 GM LOTION TP PRN (22:12)
[2018-08-11 00:10] VITALS: BP 130/73
[2018-08-11 08:16] VITALS: BP 125/65
[2018-08-11] MEDS: HALOPERIDOL 5 MG TABLET PO SCH ×2 (08:24→17:00)
[2018-08-11] MEDS: HALOPERIDOL LACTATE 5 MG/ML VIAL IM PRN ×2 (09:46→18:15)
[2018-08-11 16:13] VITALS: BP 128/67
[2018-08-12 06:44] VITALS: BP 121/86
[2018-08-12 08:17] VITALS: BP 139/78
[2018-08-12] MEDS: HALOPERIDOL 5 MG TABLET PO SCH ×2 (09:00→17:00)
[2018-08-12] MEDS: HALOPERIDOL LACTATE 5 MG/ML VIAL IM PRN ×2 (09:24→17:26)
[2018-08-12 16:30] VITALS: BP 130/65
[2018-08-13 04:12] VITALS: BP 139/77
[2018-08-13 08:13] VITALS: BP 134/73
[2018-08-13] MEDS: HALOPERIDOL 5 MG TABLET PO SCH ×2 (09:00→17:00)
[2018-08-13] MEDS: HALOPERIDOL LACTATE 5 MG/ML VIAL IM PRN ×2 (09:38→17:27)
[2018-08-13 16:41] VITALS: BP 110/60
[2018-08-14 00:47] VITALS: BP 118/75
[2018-08-14] MEDS: HALOPERIDOL 5 MG TABLET PO SCH ×2 (08:49→17:00)
[2018-08-14] MEDS: HALOPERIDOL LACTATE 5 MG/ML VIAL IM PRN ×2 (08:53→17:37)
[2018-08-14 13:14] VITALS: BP 130/65
[2018-08-14 16:22] VITALS: BP 119/68
[2018-08-15 04:30] VITALS: BP 110/62
[2018-08-15 08:19] VITALS: BP 138/72
[2018-08-15] MEDS: HALOPERIDOL 5 MG TABLET PO SCH ×2 (09:00→17:00)
[2018-08-15] MEDS: HALOPERIDOL DECANOATE 100 MG/ML VIAL IM SCH (09:05)
[2018-08-15] MEDS: HALOPERIDOL LACTATE 5 MG/ML VIAL IM PRN ×2 (09:06→16:32)
[2018-08-15 16:16] VITALS: BP 116/65
[2018-08-16 04:59] VITALS: BP 134/76
[2018-08-16 08:19] VITALS: BP 128/58
[2018-08-16] MEDS: HALOPERIDOL 5 MG TABLET PO SCH ×2 (09:00→17:00)
[2018-08-16] MEDS: HALOPERIDOL LACTATE 5 MG/ML VIAL IM PRN ×2 (09:14→17:47)
[2018-08-16 16:14] VITALS: BP 129/70
[2018-08-17 04:51] VITALS: BP 123/78
[2018-08-17 07:47] LABS: BASOPHILS % (AUTO) 0.7 % (0.0-2.0); HEMATOCRIT 37.6 % (36-46); HEMOGLOBIN 12.4 g/dL (12.0-16.0); LYMPHOCYTES # (AUTO) 1.3 K/uL (1.0-4.8); LYMPHOCYTES % (AUTO) 38.1 % (22.0-44.0); MEAN CORPUSCULAR HEMOGLOBIN 31.9 pg (26.0-34.0); MEAN CORPUSCULAR VOLUME 97 fL (80-100); MONOCYTES # (AUTO) 0.3 K/uL (0.1-1.0); MONOCYTES % (AUTO) 7.3 % (2.0-9.0); NEUTROPHILS # (AUTO) 1.8 K/uL (1.8-7.7); NEUTROPHILS % (AUTO) 52.9 % (40.0-70.0); PLATELET COUNT (AUTO) 237 K/uL (150-450); RED BLOOD CELL COUNT(AUTO) 3.88 MIL/uL (4.00-5.20)
[2018-08-17] MEDS: HALOPERIDOL 5 MG TABLET PO SCH ×2 (08:12→17:00)
[2018-08-17 08:13] VITALS: BP 149/70
[2018-08-17 08:16] LABS: HEMOGLOBIN A1C 5.3 % (4.5-6.2)
[2018-08-17 08:23] LABS: ALANINE AMINOTRANSFERASE 36 U/L (12-78); ALBUMIN 3.4 g/dL (3.4-5.0); ALKALINE PHOSPHATASE 65 U/L (46-116); ANION GAP 4 mmol/L (8-16); ASPARTATE AMINOTRANSFERASE 39 U/L (15-37); BILIRUBIN,TOTAL 0.4 mg/dL (0.1-1.0); CALCIUM, TOTAL 8.9 mg/dL (8.8-10.5); CARBON DIOXIDE 32 mmol/L (22-29); CHLORIDE 104 mmol/L (98-107); CHOL/HDL RATIO 2.5 (3.9-5.7); CHOLESTEROL 138 mg/dL (131-200); CREATININE 0.68 mg/dL (0.60-1.30); GLOMERULAR FILTR. RATE CALC > 60 mL/min (>60); GLUCOSE,RANDOM 73 mg/dL (70-110); HDL CHOLESTEROL 56 mg/dL (40-60); LDL CHOL (CALC.) 78 mg/dL (0-130); POTASSIUM 3.8 mmol/L (3.5-5.1); SODIUM SERUM 140 mmol/L (136-145); THYROID STIMULATING HORMONE 4.13 uIU/mL (0.36-3.74); TOTAL PROTEIN, SERUM 7.3 g/dL (6.4-8.2); TRIGLYCERIDES 19 mg/dL (15-150); UREA NITROGEN, BLOOD 17 mg/dL (7-18)
[2018-08-17] MEDS: HALOPERIDOL LACTATE 5 MG/ML VIAL IM PRN ×2 (09:03→17:24)
[2018-08-17 16:36] VITALS: BP 121/64
[2018-08-18 01:04] VITALS: BP 118/70
[2018-08-18 08:09] VITALS: BP 150/70
[2018-08-18] MEDS: HALOPERIDOL LACTATE 5 MG/ML VIAL IM PRN ×2 (08:26→16:56)
[2018-08-18] MEDS: HALOPERIDOL 5 MG TABLET PO SCH ×2 (08:27→16:54)
[2018-08-18] MEDS ORDERED: TUBERCULIN, PURIFIED PROTEIN DERIVATIVE 5 TU/0.1 ML SYRINGE ID ONE (15:15)
[2018-08-18 16:06] VITALS: BP 111/62
[2018-08-19 00:21] VITALS: BP 112/65
[2018-08-19 08:00] VITALS: BP 120/56
[2018-08-19] MEDS: HALOPERIDOL 5 MG TABLET PO SCH ×3 (08:32→17:00)
[2018-08-19 08:37] VITALS: BP 122/64
[2018-08-19] MEDS: HALOPERIDOL LACTATE 5 MG/ML VIAL IM PRN ×2 (10:51→17:24)
[2018-08-19 16:21] VITALS: BP 116/76
[2018-08-20 04:30] VITALS: BP 120/81
[2018-08-20 08:06] VITALS: BP 120/79
[2018-08-20] MEDS: HALOPERIDOL 5 MG TABLET PO SCH ×2 (09:00→17:00)
[2018-08-20] MEDS: HALOPERIDOL LACTATE 5 MG/ML VIAL IM PRN ×2 (10:25→17:47)
[2018-08-20 16:01] VITALS: BP 115/68
[2018-08-21 00:52] VITALS: BP 120/81
[2018-08-21 08:04] VITALS: BP_SYST 116; BP_SYST 125; BP_DIAS 72; BP_DIAS 85
[2018-08-21] MEDS: HALOPERIDOL 5 MG TABLET PO SCH ×2 (09:00→17:00)
[2018-08-21] MEDS: HALOPERIDOL LACTATE 5 MG/ML VIAL IM PRN ×2 (09:05→17:20)
[2018-08-21 16:09] VITALS: BP 136/68
[2018-08-22 00:49] VITALS: BP 126/72
[2018-08-22 08:43] VITALS: BP 136/65
[2018-08-22] MEDS: HALOPERIDOL 5 MG TABLET PO SCH ×2 (09:00→17:00)
[2018-08-22] MEDS: HALOPERIDOL LACTATE 5 MG/ML VIAL IM PRN ×2 (09:30→19:33)
[2018-08-22 16:02] VITALS: BP 126/71
[2018-08-23 02:00] VITALS: BP 134/88
[2018-08-23 08:04] VITALS: BP 131/71
[2018-08-23 08:45] LABS: BASOPHILS % (AUTO) 0.7 % (0.0-2.0); EOSINOPHILS % (AUTO) 1.1 % (1.0-6.0); HEMATOCRIT 38.2 % (36-46); HEMOGLOBIN 13.1 g/dL (12.0-16.0); LYMPHOCYTES # (AUTO) 1.4 K/uL (1.0-4.8); LYMPHOCYTES % (AUTO) 41.9 % (22.0-44.0); MEAN CORPUSCULAR HEMOGLOBIN 32.7 pg (26.0-34.0); MEAN CORPUSCULAR HGB CONC 34.2 G/dL (31.0-37.0); MEAN CORPUSCULAR VOLUME 96 fL (80-100); MONOCYTES # (AUTO) 0.2 K/uL (0.1-1.0); MONOCYTES % (AUTO) 6.3 % (2.0-9.0); NEUTROPHILS # (AUTO) 1.7 K/uL (1.8-7.7); PLATELET COUNT (AUTO) 233 K/uL (150-450); RED CELL DISTRIBUTION WIDTH 13.8 % (11.5-14.5)
[2018-08-23] MEDS: HALOPERIDOL 5 MG TABLET PO SCH ×2 (09:00→17:00)
[2018-08-23] MEDS: HALOPERIDOL LACTATE 5 MG/ML VIAL IM PRN ×2 (09:34→17:24)
[2018-08-23 16:31] VITALS: BP 117/66
[2018-08-24 00:39] VITALS: BP 102/60
[2018-08-24 08:11] VITALS: BP 149/77
[2018-08-24] MEDS: HALOPERIDOL 5 MG TABLET PO SCH ×2 (09:00→16:34)
[2018-08-24] MEDS: HALOPERIDOL LACTATE 5 MG/ML VIAL IM PRN ×2 (09:58→16:33)
[2018-08-24 16:13] VITALS: BP 125/79
[2018-08-25] VITALS: BP 110/71
[2018-08-25 08:03] VITALS: BP 119/67
[2018-08-25] MEDS: HALOPERIDOL 5 MG TABLET PO SCH ×2 (09:00→17:00)
[2018-08-25] MEDS: HALOPERIDOL LACTATE 5 MG/ML VIAL IM PRN ×2 (10:54→19:57)
[2018-08-25 16:28] VITALS: BP 98/74
[2018-08-26 01:56] VITALS: BP 116/80
[2018-08-26 08:11] VITALS: BP 112/74
[2018-08-26] MEDS: HALOPERIDOL 5 MG TABLET PO SCH ×2 (09:00→17:00)
[2018-08-26] MEDS: HALOPERIDOL LACTATE 5 MG/ML VIAL IM PRN ×2 (09:53→17:24)
[2018-08-26 16:01] VITALS: BP 120/72
[2018-08-27 02:24] VITALS: BP 117/74
[2018-08-27] MEDS: MAG HYDROX/AL HYDROX/SIMETH ES 30 ML SUSPENSION UDCUP PO PRN (05:02)
[2018-08-27 08:23] VITALS: BP 147/78
[2018-08-27] MEDS: HALOPERIDOL 5 MG TABLET PO SCH ×2 (08:50→17:00)
[2018-08-27] MEDS: HALOPERIDOL LACTATE 5 MG/ML VIAL IM PRN ×2 (08:52→17:37)
[2018-08-27 16:02] VITALS: BP 132/73
[2018-08-28 03:14] VITALS: BP 120/81
[2018-08-28 08:07] VITALS: BP 139/81
[2018-08-28] MEDS: HALOPERIDOL 5 MG TABLET PO SCH ×2 (09:00→17:00)
[2018-08-28] MEDS: HALOPERIDOL LACTATE 5 MG/ML VIAL IM PRN ×2 (10:38→17:25)
[2018-08-28 16:07] VITALS: BP 107/68
[2018-08-29 06:12] VITALS: BP 114/69
[2018-08-29 08:20] VITALS: BP 120/70
[2018-08-29] MEDS: HALOPERIDOL 5 MG TABLET PO SCH ×3 (09:00→16:37)
[2018-08-29] MEDS: HALOPERIDOL LACTATE 5 MG/ML VIAL IM PRN ×2 (12:24→17:27)
[2018-08-29 16:10] VITALS: BP 121/73
[2018-08-30 02:51] VITALS: BP 115/74
[2018-08-30 08:22] VITALS: BP 122/80
[2018-08-30] MEDS: HALOPERIDOL 5 MG TABLET PO SCH ×2 (08:44→17:00)
[2018-08-30] MEDS: HALOPERIDOL LACTATE 5 MG/ML VIAL IM PRN ×2 (08:44→17:08)
[2018-08-30] MEDS: COLLOIDAL OATMEAL/DIMETH 227 GM LOTION TP PRN (11:30)
[2018-08-30 16:02] VITALS: BP 150/78
[2018-08-31 00:08] VITALS: BP 126/74
[2018-08-31 08:14] VITALS: BP 115/69
[2018-08-31] MEDS: HALOPERIDOL 5 MG TABLET PO SCH ×2 (08:32→16:44)
[2018-08-31 16:08] VITALS: BP 120/63
[2018-09-01 07:26] VITALS: BP 118/70
[2018-09-01 08:22] VITALS: BP 161/77
[2018-09-01] MEDS: HALOPERIDOL 5 MG TABLET PO SCH ×2 (09:00→17:00)
[2018-09-01] MEDS: HALOPERIDOL LACTATE 5 MG/ML VIAL IM PRN ×2 (10:03→17:36)
[2018-09-01 11:57] VITALS: BP 169/80
[2018-09-01 17:41] VITALS: BP 114/63
[2018-09-02 05:41] VITALS: BP 123/86
[2018-09-02 08:12] VITALS: BP 115/73
[2018-09-02] MEDS: HALOPERIDOL 5 MG TABLET PO SCH ×2 (09:00→16:13)
[2018-09-02] MEDS: HALOPERIDOL LACTATE 5 MG/ML VIAL IM PRN ×2 (10:52→16:14)
[2018-09-02 16:02] VITALS: BP 122/72
[2018-09-03 05:02] VITALS: BP 126/79
[2018-09-03 08:10] LABS: BASOPHILS % (AUTO) 0.8 % (0.0-2.0); EOSINOPHILS % (AUTO) 0.7 % (1.0-6.0); HEMATOCRIT 36.6 % (36-46); HEMOGLOBIN 12.3 g/dL (12.0-16.0); LYMPHOCYTES # (AUTO) 1.2 K/uL (1.0-4.8); LYMPHOCYTES % (AUTO) 24.9 % (22.0-44.0); MEAN CORPUSCULAR HEMOGLOBIN 31.9 pg (26.0-34.0); MEAN CORPUSCULAR HGB CONC 33.7 G/dL (31.0-37.0); MEAN CORPUSCULAR VOLUME 95 fL (80-100); MONOCYTES # (AUTO) 0.3 K/uL (0.1-1.0); MONOCYTES % (AUTO) 6.6 % (2.0-9.0); NEUTROPHILS # (AUTO) 3.2 K/uL (1.8-7.7); PLATELET COUNT (AUTO) 236 K/uL (150-450); RED BLOOD CELL COUNT(AUTO) 3.86 MIL/uL (4.00-5.20); RED CELL DISTRIBUTION WIDTH 13.6 % (11.5-14.5)
[2018-09-03] MEDS: HALOPERIDOL 5 MG TABLET PO SCH ×2 (09:00→17:00)
[2018-09-03 09:02] VITALS: BP 121/77
[2018-09-03 16:39] VITALS: BP 142/74
[2018-09-03] MEDS: HALOPERIDOL LACTATE 5 MG/ML VIAL IM PRN (17:41)
[2018-09-04 05:58] VITALS: BP 119/71
[2018-09-04] MEDS: HALOPERIDOL 5 MG TABLET PO SCH ×2 (09:00→17:00)
[2018-09-04] MEDS: HALOPERIDOL LACTATE 5 MG/ML VIAL IM PRN ×2 (09:17→18:02)
[2018-09-04 10:07] VITALS: BP 125/66
[2018-09-04 16:02] VITALS: BP 128/72
[2018-09-05 05:59] VITALS: BP 119/69
[2018-09-05 08:21] VITALS: BP 145/77
[2018-09-05] MEDS: HALOPERIDOL 5 MG TABLET PO SCH ×3 (09:00→17:00)
[2018-09-05] MEDS: HALOPERIDOL LACTATE 5 MG/ML VIAL IM PRN ×2 (09:04→18:24)
[2018-09-05 16:36] VITALS: BP 122/83
[2018-09-06 01:22] VITALS: BP 122/83
[2018-09-06 08:20] VITALS: BP 145/73
[2018-09-06] MEDS: HALOPERIDOL 5 MG TABLET PO SCH ×2 (08:37→17:00)
[2018-09-06] MEDS: HALOPERIDOL LACTATE 5 MG/ML VIAL IM PRN ×2 (08:38→17:40)
[2018-09-06 16:07] VITALS: BP 113/65
[2018-09-07 06:45] VITALS: BP 118/74
[2018-09-07 08:15] VITALS: BP 122/70
[2018-09-07] MEDS: HALOPERIDOL 5 MG TABLET PO SCH ×2 (09:00→17:00)
[2018-09-07] MEDS: HALOPERIDOL LACTATE 5 MG/ML VIAL IM PRN ×2 (09:28→17:36)
[2018-09-07 16:13] VITALS: BP 146/70
[2018-09-08 00:45] VITALS: BP 118/62
[2018-09-08 08:10] VITALS: BP 119/62
[2018-09-08] MEDS: HALOPERIDOL 5 MG TABLET PO SCH ×2 (09:00→17:00)
[2018-09-08] MEDS: HALOPERIDOL LACTATE 5 MG/ML VIAL IM PRN ×2 (09:47→17:04)
[2018-09-08 16:18] VITALS: BP 107/68
[2018-09-09 06:10] VITALS: BP 116/68
[2018-09-09 08:13] VITALS: BP 119/66
[2018-09-09] MEDS: HALOPERIDOL 5 MG TABLET PO SCH ×2 (09:00→17:00)
[2018-09-09] MEDS: HALOPERIDOL LACTATE 5 MG/ML VIAL IM PRN ×2 (10:05→17:34)
[2018-09-09] MEDS: MAG HYDROX/AL HYDROX/SIMETH ES 30 ML SUSPENSION UDCUP PO PRN (14:58)
[2018-09-09 16:15] VITALS: BP 144/76
[2018-09-10] MEDS: MAG HYDROX/AL HYDROX/SIMETH ES 30 ML SUSPENSION UDCUP PO PRN (00:14)
[2018-09-10 00:47] VITALS: BP 131/86
[2018-09-10 08:04] VITALS: BP 144/89
[2018-09-10] MEDS: HALOPERIDOL 5 MG TABLET PO SCH ×2 (09:00→17:00)
[2018-09-10] MEDS: HALOPERIDOL LACTATE 5 MG/ML VIAL IM PRN ×2 (09:56→17:32)
[2018-09-10] MEDS: COLLOIDAL OATMEAL/DIMETH 227 GM LOTION TP PRN (11:10)
[2018-09-10 16:06] VITALS: BP 116/73
[2018-09-11 01:17] VITALS: BP 117/66
[2018-09-11 08:25] VITALS: BP 143/69
[2018-09-11] MEDS: HALOPERIDOL 5 MG TABLET PO SCH ×2 (09:00→17:00)
[2018-09-11] MEDS: HALOPERIDOL LACTATE 5 MG/ML VIAL IM PRN ×2 (09:49→17:36)
[2018-09-11 16:03] VITALS: BP 120/74
[2018-09-12 00:40] VITALS: BP 124/82
[2018-09-12 08:18] VITALS: BP 124/75
[2018-09-12] MEDS: HALOPERIDOL 5 MG TABLET PO SCH ×2 (09:00→17:00)
[2018-09-12] MEDS: HALOPERIDOL LACTATE 5 MG/ML VIAL IM PRN ×2 (09:43→17:30)
[2018-09-12 16:11] VITALS: BP 128/88
[2018-09-13 04:22] VITALS: BP 135/81
[2018-09-13 08:53] LABS: ANION GAP 3 mmol/L (8-16); CALCIUM, TOTAL 9.3 mg/dL (8.8-10.5); CARBON DIOXIDE 34 mmol/L (22-29); CHLORIDE 103 mmol/L (98-107); CREATININE 0.76 mg/dL (0.60-1.30); GLOMERULAR FILTR. RATE CALC > 60 mL/min (>60); GLUCOSE,RANDOM 113 mg/dL (70-110); POTASSIUM 3.9 mmol/L (3.5-5.1); SODIUM SERUM 140 mmol/L (136-145); UREA NITROGEN, BLOOD 16 mg/dL (7-18)
[2018-09-13] MEDS: HALOPERIDOL 5 MG TABLET PO SCH ×2 (09:00→16:25)
[2018-09-13 09:02] LABS: BASOPHILS % (AUTO) 0.8 % (0.0-2.0); EOSINOPHILS % (AUTO) 1.4 % (1.0-6.0); HEMATOCRIT 38.9 % (36-46); HEMOGLOBIN 12.9 g/dL (12.0-16.0); LYMPHOCYTES # (AUTO) 1.5 K/uL (1.0-4.8); LYMPHOCYTES % (AUTO) 41.8 % (22.0-44.0); MEAN CORPUSCULAR HEMOGLOBIN 31.7 pg (26.0-34.0); MEAN CORPUSCULAR HGB CONC 33.2 G/dL (31.0-37.0); MEAN CORPUSCULAR VOLUME 95 fL (80-100); MONOCYTES # (AUTO) 0.2 K/uL (0.1-1.0); MONOCYTES % (AUTO) 6.3 % (2.0-9.0); NEUTROPHILS # (AUTO) 1.8 K/uL (1.8-7.7); NEUTROPHILS % (AUTO) 49.7 % (40.0-70.0); PLATELET COUNT (AUTO) 237 K/uL (150-450); RED BLOOD CELL COUNT(AUTO) 4.08 MIL/uL (4.00-5.20); RED CELL DISTRIBUTION WIDTH 13.6 % (11.5-14.5)
[2018-09-13 09:04] VITALS: BP 119/72
[2018-09-13] MEDS: HALOPERIDOL LACTATE 5 MG/ML VIAL IM PRN ×2 (09:41→17:44)
[2018-09-13 16:27] VITALS: BP 115/62
[2018-09-14 05:20] VITALS: BP 112/64
[2018-09-14] MEDS: HALOPERIDOL 5 MG TABLET PO SCH ×2 (09:00→16:19)
[2018-09-14 09:08] VITALS: BP 138/72
[2018-09-14] MEDS: HALOPERIDOL LACTATE 5 MG/ML VIAL IM PRN ×2 (09:28→16:44)
[2018-09-14] MEDS: HALOPERIDOL DECANOATE 100 MG/ML VIAL IM SCH (13:00)
[2018-09-14 16:15] VITALS: BP 113/72
[2018-09-15 00:26] VITALS: BP 139/77
[2018-09-15] MEDS: HALOPERIDOL 5 MG TABLET PO SCH ×2 (09:00→16:32)
[2018-09-15] MEDS: HALOPERIDOL LACTATE 5 MG/ML VIAL IM PRN ×2 (09:43→18:03)
[2018-09-15 10:11] VITALS: BP 161/82
[2018-09-15 16:51] VITALS: BP 118/75
[2018-09-16 01:04] VITALS: BP 129/76
[2018-09-16 08:24] VITALS: BP 148/78
[2018-09-16] MEDS: HALOPERIDOL 5 MG TABLET PO SCH ×2 (09:00→17:00)
[2018-09-16] MEDS: HALOPERIDOL LACTATE 5 MG/ML VIAL IM PRN ×2 (09:42→17:32)
[2018-09-16 16:28] VITALS: BP_SYST 140; BP_SYST 147; BP_DIAS 60; BP_DIAS 77
[2018-09-17 03:20] VITALS: BP 132/70
[2018-09-17 08:22] VITALS: BP 137/73
[2018-09-17] MEDS ORDERED: LOPERAMIDE HCL 2 MG CAPSULE PO PRN (09:30)
[2018-09-17] MEDS ORDERED: DOCUSATE SODIUM 100 MG CAPSULE PO PRN (09:30)
[2018-09-17] MEDS ORDERED: MAGNESIUM HYDROXIDE SUSPENSION 30 ML UDCUP PO PRN (09:30)
[2018-09-17] MEDS ORDERED: ACETAMINOPHEN 325 MG TABLET PO PRN (09:30)
[2018-09-17] MEDS ORDERED: ONDANSETRON HCL 4 MG TABLET PO PRN (09:30)
[2018-09-17] MEDS ORDERED: PETROLATUM,WHITE 28 GM JELLY TP PRN (09:30)
[2018-09-17] MEDS ORDERED: CloNIDine HCL 0.1 MG TABLET PO PRN (09:30)
[2018-09-17] MEDS ORDERED: HALOPERIDOL LACTATE 5 MG/ML VIAL IM SCH (09:30)
[2018-09-17] MEDS ORDERED: IBUPROFEN 400 MG TABLET PO PRN (09:30)
[2018-09-17] MEDS ORDERED: ALBUTEROL SULFATE HFA 90 MCG/PUFF 8 GM INHALER IH PRN (09:30)
[2018-09-17] MEDS ORDERED: NICOTINE 14 MG/24 HOUR PATCH TD PRN (09:30)
[2018-09-17] MEDS ORDERED: GuaiFENesin/D-METHORPHAN [SUGAR-FREE] 200-20MG/10 ML SYRUP UDCUP PO PRN (09:30)
[2018-09-17] MEDS: HALOPERIDOL 5 MG TABLET PO SCH ×2 (09:30→17:00)
[2018-09-17] MEDS: HALOPERIDOL LACTATE 5 MG/ML VIAL IM PRN ×2 (12:41→17:40)
[2018-09-17 16:02] VITALS: BP 143/68
[2018-09-18 01:30] VITALS: BP 140/78
[2018-09-18 06:56] VITALS: BP 131/70
[2018-09-18 09:08] VITALS: BP 116/70
[2018-09-18] MEDS: HALOPERIDOL LACTATE 5 MG/ML VIAL IM PRN (11:08)
[2018-09-18 16:18] VITALS: BP 125/67
[2018-09-19 08:08] VITALS: BP 127/68
[2018-09-19 16:01] VITALS: BP 119/71
[2018-09-20 00:30] VITALS: BP 123/72
[2018-09-20 08:22] LABS: APPEARANCE,URINE CLEAR (CLEAR); BILIRUBIN,URINE NEGATIVE (NEGATIVE); GLUCOSE, URINE (UA) NEGATIVE (NEGATIVE); KETONES,URINE NEGATIVE (NEGATIVE); LEUKOCYTE ESTERASE ,URINE NEGATIVE (NEGATIVE); NITRATE,URINE NEGATIVE (NEGATIVE); OCCULT BLOOD,URINE TRACE (NEGATIVE); PROTEIN,URINE NEGATIVE (NEGATIVE); UROBILINOGEN,URINE 0.2 mg/dL (<=1.0)
[2018-09-20 08:24] VITALS: BP 149/81
[2018-09-20 08:42] LABS: BACTERIA,URINE None Seen /HPF (None Seen); RBC,URINE None Seen /HPF (0-2); SQUAMOUS EPITHELIAL CELL,UR Rare /LPF (None Seen); WBC,URINE None Seen /HPF (0-5)
[2018-09-20 10:29] VITALS: BP 121/65
[2018-09-20] MEDS: MAG HYDROX/AL HYDROX/SIMETH ES 30 ML SUSPENSION UDCUP PO PRN (13:03)
[2018-09-20 16:01] VITALS: BP 114/61
[2018-09-21] MEDS: MAG HYDROX/AL HYDROX/SIMETH ES 30 ML SUSPENSION UDCUP PO PRN (00:07)
[2018-09-21 00:46] VITALS: BP 133/64
[2018-09-21 08:12] VITALS: BP 140/67
[2018-09-21 16:11] VITALS: BP 130/74
[2018-09-22 00:40] VITALS: BP 122/80
[2018-09-22 08:08] VITALS: BP 148/76
[2018-09-22] MEDS ORDERED: PNEUMOCOCCAL VACCINE POLYVALENT 0.5 ML VIAL [PPSV23] IM ONE (12:45)
[2018-09-22] MEDS ORDERED: TUBERCULIN, PURIFIED PROTEIN DERIVATIVE 5 TU/0.1 ML SYRINGE ID ONE (12:45)
[2018-09-22 16:00] VITALS: BP 118/78
[2018-09-23 00:02] VITALS: BP 124/76
[2018-09-23 08:37] VITALS: BP 148/72
[2018-09-23] MEDS ORDERED: PNEUMOCOCCAL VACCINE POLYVALENT 0.5 ML VIAL [PPSV23] SQ ONE (09:30)
[2018-09-23 16:10] VITALS: BP 135/64
[2018-09-24 00:27] VITALS: BP 130/81
[2018-09-24 08:20] VITALS: BP 145/65
[2018-09-24] MEDS ORDERED: HALO100V4 IM (12:19)
[2018-10-17] MEDS ORDERED: HALOPERIDOL DECANOATE 100 MG/ML VIAL IM SCH (09:00)
== END 2018-09-24 15:45 | DRG 750 ==
LOC: EMS 11:09 → B3A 18:16 → B2S 08-17 19:40
PROVIDERS: ADMIT Psychiatry & Neurology Psychiatry; ATTEND Psychiatry & Neurology Psychiatry
PROC: 3E02340 Introduction of Influenza Vaccine into Muscle, Percutaneous Approach (ICD-10-PCS; 2018-09-23)
PROC: 3E0234Z Introduction of Serum, Toxoid and Vaccine into Muscle, Percutaneous Approach (ICD-10-PCS; principal; 2018-09-24)
DX: F25.0 Schizoaffective disorder, bipolar type (principal); Z59.0 Homelessness; F41.9 Anxiety disorder, unspecified; Z23 Encounter for immunization; G44.209 Tension-type headache, unspecified, not intractable; G47.00 Insomnia, unspecified; I10 Essential (primary) hypertension; M19.90 Unspecified osteoarthritis, unspecified site; Z75.1 Person awaiting admission to adequate facility elsewhere; Z91.14 Patient's other noncompliance with medication regimen; Z91.19 Patient's noncompliance with other medical treatment and regimen; R30.0 Dysuria; M79.89 Other specified soft tissue disorders
CPT/HCPCS: 83036; 84443; 87081; 90686; 90732; J1630; J1631; J2060